=== PATIENT | male | born 1940 | race African-American/Black ===

== ENCOUNTER 2016-07-30 15:52 | Emergency (ER) | payer MEDICARE ==
[2016-07-30 15:25] LABS: BASOPHILS 0.1 %; BASOPHILS ABSOLUTE 0.01 10/3/uL (0.0-0.16); EOSINOPHILS 0.1 %; EOSINOPHILS ABSOLUTE 0.02 10/3/uL (0.0-0.53); HEMATOCRIT 37.3 % (40.0-51.0); HEMOGLOBIN 12.2 g/dL (13.6-17.8); IMMATURE GRANULOCYTES 0.4 %; IMMATURE GRANULOCYTES ABSOLUTE 0.06 10/3/uL (0.0-0.11); LYMPHOCYTES 19.2 %; MEAN CORPUS HGB CONC 32.7 g/dL (32.0-36.0); MEAN CORPUSCULAR HEMOGLOB 27.7 pg (26.0-34.0); MEAN PLATELET VOLUME 10.1 fL (9.2-13.0); MONOCYTES 7.2 %; MONOCYTES ABSOLUTE 1.01 10/3/uL (0.21-1.20); NEUTROPHILS ABSOLUTE 10.28 10/3/uL (2.02-8.40); RBC DISTRIBUTION WIDTH 17.2 % (12.0-16.0); RED CELL COUNT 4.41 10/6/uL (4.7-6.1)
[2016-07-30 15:28] LABS: ER CBC TAT 0 Hrs 09 Mins; MANUAL DIFF NO %; MEAN CORPUSCULAR VOLUME 84.6 fL (80-100); PLATELET COUNT 193 10/3/uL (150-400); WHITE BLOOD CELLS 14.1 10/3/uL (4.5-10.5)
[2016-07-30 15:40] LABS: A/G RATIO 0.9 (0.7-1.9); ALBUMIN 3.5 G/DL (3.5-5.0); ALKALINE PHOSPHATASE 102 U/L (45-117); BUN (BLOOD UREA NITROGEN) 35 MG/DL (6-23); CALCIUM, SERUM 7.7 MG/DL (8.5-10.4); CHLORIDE, SERUM 106 MMOL/L (96-112); CO2 (CARBON DIOXIDE) 28 MMOL/L (24-34); CREATININE 1.52 MG/DL (0.70-1.30); GFR AFRICAN AMERICAN 50 ML/MIN (>=60); GFR NON AFRICAN AMERICAN 44 ML/MIN (>=60); GLOBULIN 3.7 G/DL (2.5-4.1); GLUCOSE, SERUM 62 MG/DL (60-99); SGOT(AST) 17 U/L (5-40); SGPT(ALT) 37 U/L (5-65); SODIUM, SERUM 143 MMOL/L (135-148); TOTAL BILIRUBIN 0.2 MG/DL (0-1.2); TOTAL PROTEIN 7.2 G/DL (6.0-8.5)
[~2016-07-30 15:52] MED LIST: AVINZA30 PO; BUM2 PO; CALCIUM; COLCH6 PO; DSS PO; ETODOLAC ER400 MG PO; ETODOLAC400 MG OR; FERROUS SULF325 M1 PO; FLOMAX4 PO; GLUCOPHAGE1000 MG PO; GLUCPH8 PO; HEMOCYTE324 MG PO; HUMALOGPEN SC; IBU800; INSULIN PEN; KLOR-CON M1010 MEQ PO; LACT30UDL PO; LEVOTHYROXIN125 MCG PO; LEVOTHYROXIN175 MCG PO; LORCET PO; MAGOX4 PO; MIRALAXPKT PO; MSCONT60 PO; NICODERM C21 MG/241 TOP; NORCO1 TAB PO; NOVOPEN SC; P20 PO; P5 PO; PERCOCET1 TA5 PO; POLYETHYLENE; PROTONIX PO; RANITIDINE300 MG PO; T PO; ZANTAC300 MG PO
== END 2016-07-30 18:29 | disposition home or self-care (01) ==
LOC: ER 15:52
PROVIDERS: Emergency Medicine
DX: E16.2 Hypoglycemia, unspecified (principal); Z88.5 Allergy status to narcotic agent; Z88.6 Allergy status to analgesic agent; Z79.52 Long term (current) use of systemic steroids
CPT/HCPCS: 80053; 82962; 85025; 99285